=== PATIENT | male | born 1985 | race Caucasian/White ===

== ENCOUNTER 2016-08-29 21:22 | Emergency (ER) | payer SELFPAY ==
--- NOTE | 2016-08-30 06:07 | ER ---
ADMIT: 08/29/2016 RM/LOC: ER [facility] MR#: [id number] [address] [facility] [id number] [place], [place] [address] [address] [id number] Emergency Room Report SEX: M AGE: 31 : 1985 DATE: 08/29/2016 The patient is a 31-year-old male with complex seizures, non-compliant with his Depakote in police custody for outstanding warrant, states he has had multiple seizures today. He has refused all medical care. Exam remarkable for alert, noncompliant, noncooperative male, refuses all care, offered prescription of Depakote. The patient refused. Follow up Dr. Neumann as needed. Horacio Justice MD/ claribel JOB #: [id number] CC: Hoarcio Justice MD, Attending Physician Nolberto Taylor MD, Family Physician Louie Neumann MD
== END 2016-08-29 21:48 | disposition home or self-care (01) ==
LOC: ER 21:22
DX: G40.209 Localization-related (focal) (partial) symptomatic epilepsy and epileptic syndromes with complex partial seizures, not intractable, without status epilepticus (principal)

== ENCOUNTER 2016-09-11 11:42 | Emergency (ER) | payer OTHER ==
--- NOTE | 2016-09-17 16:10 | ER ---
ADMIT: 09/11/2016 RM/LOC: ER [facility] MR#: [id number] [address] [address] [address]A [address] [place] [address] Emergency Room Report SEX: M AGE: 31 : 1985 DATE: 09/11/2016 ADDENDUM: This is a 31-year-old white male coming in from the long-term with a dislocated right shoulder. This is not new. He has a chronically dislocating shoulder. He has never had it operated on. He has not ever followed up with Ortho. At this time, we used 20 mL of lidocaine interarticular, which gave him enough comfort so that we could reduce this without problems. Post x-ray showed good reduction without problems. Neurovascularly intact. Referred to Marsha Medina on-call. CONDITION ON DISCHARGE: Improved. Chema Bustos MD/ claribel JOB #: [id number] CC: Chema Bustos MD, Attending Physician UNKNOWN, Family Physician
== END 2016-09-11 12:30 | disposition home or self-care (01) ==
LOC: ER 11:42
PROC: 0RSJXZZ Reposition Right Shoulder Joint, External Approach (ICD-10-PCS; principal; 2016-09-11)
DX: M24.411 Recurrent dislocation, right shoulder (principal); F17.210 Nicotine dependence, cigarettes, uncomplicated; Z88.8 Allergy status to other drugs, medicaments and biological substances